=== PATIENT | female | born 1990 | race Caucasian/White ===

== ENCOUNTER 2020-09-19 20:35 | Emergency (ER) | payer OTHER ==
[2020-09-19 21:21] LABS: BASOPHIL 0.5 % (0-2); EOSINOPHIL 3.4 % (0-5); HCT 36.7 % (37.0-47.0); HGB 12.3 g/dl (12.5-16.0); LYMPHOCYTE 45.8 % (15-48); MCH 30.3 pg (25.0-31.0); MCHC 33.5 g/dL (32.0-36.0); MCV 90.4 fL (78.0-100.0); MONOCYTE 7.2 % (0-12); MPV 9.4 fL (6.0-9.5); NEUTROPHIL 42.9 % (41-80); NRBC 0; PLT 269 K/uL (150-400); RBC 4.06 M/uL (4.20-5.40); RDW 12.5 % (11.5-14.0); WBC 10.4 K/uL (4.0-10.5)
[2020-09-19 21:31] LABS: INR 1.01 (0.9-1.2); PROTHROMBIN TIME 12.6 SECONDS (11.4-13.6); PTT 28.1 SECONDS (22.2-34.7)
[2020-09-19 22:00] LABS: ALBUMIN 3.6 g/dL (3.4-5.0); BILIRUBIN - TOTAL 0.2 mg/dL (0.2-1.0); BUN/CREAT RATIO (CALC) 19.2 RATIO; CREATININE 0.73 mg/dL (0.51-0.95); GLOBULIN (CALCULATION) 3.1 g/dL; POTASSIUM 3.7 mmol/L (3.5-5.1); TOTAL PROTEIN 6.7 g/dL (6.4-8.2)
[2020-09-20] MEDS ORDERED: IBUPROFEN800 MG PO (00:15)
[2020-09-20] MEDS ORDERED: CYCLOBENZAPRINE10 MG PO (00:15)
== END 2020-09-20 00:19 | disposition home or self-care (01) ==
LOC: FER 20:35
PROVIDERS: Student in an Organized Health Care Education/Training Program
DX: M62.838 Other muscle spasm (principal); R07.89 Other chest pain; R06.02 Shortness of breath
CPT/HCPCS: 36415; 71045; 80053; 84484; 85025; 85610; 85730; 93005

== ENCOUNTER 2020-09-23 22:10 | Emergency (ER) | payer OTHER ==
[~2020-09-23 22:10] MED LIST: CYCLOBENZAPRINE10 MG PO; IBUPROFEN800 MG PO
== END 2020-09-23 23:30 | disposition left against medical advice (07) ==
LOC: FER 22:10
DX: Z53.8 Procedure and treatment not carried out for other reasons (principal)